=== PATIENT | female | born 1980 | race Two or more races ===

== ENCOUNTER 2018-04-10 15:59 | Outpatient (CLI) | payer OTHER ==
[~2018-04-10] VITALS: Ht 165.1 cm; Wt 113.4 kg
[~2018-04-10 15:59] MED LIST: GILTUSS TR TAB1 EACH PO; NEURONTIN300 MG PO; OSEL75CA PO; TENORMIN50 M1; TESSALON PERLE100 MG PO; TORADOL60 MG IM; VOLTAREM 50 MG PO; VOLTAREM 75 MG PO
== END 2018-04-10 16:10 | disposition home or self-care (01) ==
LOC: OFIC 805 15:59
DX: H90.41 Sensorineural hearing loss, unilateral, right ear, with unrestricted hearing on the contralateral side (principal); R22.1 Localized swelling, mass and lump, neck; H73.891 Other specified disorders of tympanic membrane, right ear

== ENCOUNTER 2018-04-29 06:44 | Outpatient (CLI) | payer OTHER | END 2018-04-29 06:52 | disposition home or self-care (01) | LOC: LAB 06:44 → OFIC 805 05-15 15:00 | DX: I10 Essential (primary) hypertension (principal); Z00.00 Encounter for general adult medical examination without abnormal findings ==

== ENCOUNTER 2018-05-16 15:25 | Outpatient (CLI) | payer OTHER | END 2018-05-16 15:27 | disposition home or self-care (01) | LOC: SONOGRAMA 15:25 | DX: R22.1 Localized swelling, mass and lump, neck (principal) ==

== ENCOUNTER 2019-03-02 06:22 | Outpatient (CLI) | payer OTHER | END 2019-03-02 06:27 | disposition home or self-care (01) | LOC: LAB 06:22 | DX: E03.8 Other specified hypothyroidism (principal); E78.00 Pure hypercholesterolemia, unspecified; N39.0 Urinary tract infection, site not specified; Z11.4 Encounter for screening for human immunodeficiency virus [HIV]; Z12.11 Encounter for screening for malignant neoplasm of colon; E55.9 Vitamin D deficiency, unspecified; Z21 Asymptomatic human immunodeficiency virus [HIV] infection status; R79.89 Other specified abnormal findings of blood chemistry; Z00.00 Encounter for general adult medical examination without abnormal findings; I10 Essential (primary) hypertension ==

== ENCOUNTER 2019-03-02 13:45 | Outpatient (CLI) | payer OTHER | END 2019-03-02 13:55 | disposition home or self-care (01) | LOC: MAMO-SONO 13:45 | DX: Z12.31 Encounter for screening mammogram for malignant neoplasm of breast (principal); Z87.898 Personal history of other specified conditions; N63.10 Unspecified lump in the right breast, unspecified quadrant; N63.20 Unspecified lump in the left breast, unspecified quadrant; N64.59 Other signs and symptoms in breast; N64.89 Other specified disorders of breast ==

== ENCOUNTER 2019-03-16 13:27 | Outpatient (CLI) | payer OTHER | END 2019-03-17 07:43 | disposition home or self-care (01) | LOC: SONOGRAMA 13:27 | DX: N60.11 Diffuse cystic mastopathy of right breast (principal); N60.12 Diffuse cystic mastopathy of left breast ==

== ENCOUNTER → 2019-04-17 14:48 | Outpatient (CLI) | payer OTHER | END | disposition home or self-care (01) | LOC: LAB 14:48 | DX: J11.1 Influenza due to unidentified influenza virus with other respiratory manifestations (principal); J06.9 Acute upper respiratory infection, unspecified ==

== ENCOUNTER → 2019-12-03 06:14 | Outpatient (CLI) | payer OTHER | END | disposition home or self-care (01) | LOC: LAB 06:14 | PROVIDERS: ATTEND Internal Medicine Cardiovascular Disease | DX: E11.9 Type 2 diabetes mellitus without complications (principal); I10 Essential (primary) hypertension; E03.8 Other specified hypothyroidism; E78.2 Mixed hyperlipidemia; E55.9 Vitamin D deficiency, unspecified ==

== ENCOUNTER 2020-11-17 07:18 | Outpatient (CLI) | payer OTHER | END 2020-11-17 15:00 | disposition home or self-care (01) | LOC: LAB 07:18 | PROVIDERS: ATTEND Emergency Medicine Pediatric Emergency Medicine | DX: Z03.818 Encounter for observation for suspected exposure to other biological agents ruled out (principal) ==

== ENCOUNTER 2021-01-26 15:03 | Outpatient (CLI) | payer OTHER | END 2021-01-26 15:06 | disposition home or self-care (01) | LOC: PPH VACUNA 15:03 | PROVIDERS: ATTEND Emergency Medicine Pediatric Emergency Medicine | DX: Z23 Encounter for immunization (principal) ==

== ENCOUNTER → 2021-02-17 | Outpatient (CLI) | payer OTHER | END | disposition home or self-care (01) | LOC: PPH VACUNA 08:00 | PROVIDERS: ATTEND Emergency Medicine Pediatric Emergency Medicine | DX: Z23 Encounter for immunization (principal) ==

== ENCOUNTER → 2021-06-19 | Emergency (ER) | payer OTHER ==
[~2021-06-19] VITALS: Ht 162.6 cm; Wt 113.4 kg
[~2021-06-19] MED LIST changes: +VISTARIL50 MG PO
== END | disposition home or self-care (01) ==
LOC: ER 00:45
DX: F41.8 Other specified anxiety disorders (principal); R11.0 Nausea; Z88.0 Allergy status to penicillin

== ENCOUNTER 2021-07-26 07:21 | Outpatient (CLI) | payer OTHER | END 2021-07-26 14:34 | disposition home or self-care (01) | LOC: LAB 07:21 | DX: Z01.818 Encounter for other preprocedural examination (principal); Z00.00 Encounter for general adult medical examination without abnormal findings ==

== ENCOUNTER 2021-07-27 07:17 | Outpatient (CLI) | payer OTHER | END 2021-07-27 14:37 | disposition home or self-care (01) | LOC: LAB 07:17 | DX: A53.9 Syphilis, unspecified (principal) ==

== ENCOUNTER 2021-08-08 07:29 | Outpatient (CLI) | payer OTHER | END 2021-08-09 15:17 | disposition home or self-care (01) | LOC: LAB 07:29 | PROVIDERS: ATTEND General Practice | DX: K72.00 Acute and subacute hepatic failure without coma (principal); B01.9 Varicella without complication ==

== ENCOUNTER 2021-09-05 15:23 | Outpatient (CLI) | payer OTHER | END 2021-09-05 15:36 | disposition home or self-care (01) | LOC: LAB 15:23 | PROVIDERS: ATTEND Anesthesiology | DX: Z20.822 Contact with and (suspected) exposure to COVID-19 (principal) ==

== ENCOUNTER → 2021-12-26 | Outpatient (CLI) | payer OTHER | END | disposition home or self-care (01) | LOC: PPH VACUNA 08:00 | PROVIDERS: ATTEND Emergency Medicine Pediatric Emergency Medicine | DX: Z23 Encounter for immunization (principal) ==

== ENCOUNTER 2022-03-24 04:15 | Emergency (ER) | payer OTHER ==
[~2022-03-24] VITALS: Ht 162.6 cm; Wt 108.9 kg
[2022-03-24] MEDS ORDERED: MEDROLPACK PO (06:17)
[2022-03-24] MEDS ORDERED: CELEBREX200MG PO (06:17)
[2022-03-24] MEDS ORDERED: METAXALONE800 MG PO (06:17)
== END 2022-03-24 06:25 | disposition home or self-care (01) ==
LOC: ER 04:15
DX: S29.012A Strain of muscle and tendon of back wall of thorax, initial encounter (principal); Z88.0 Allergy status to penicillin; I10 Essential (primary) hypertension

== ENCOUNTER 2022-07-15 02:05 | Emergency (ER) | payer OTHER ==
[~2022-07-15] VITALS: Ht 162.6 cm; Wt 111.1 kg
[~2022-07-15 02:05] MED LIST changes: +CELEBREX200MG PO; +MEDROLPACK PO; +METAXALONE800 MG PO
== END 2022-07-15 04:49 | disposition home or self-care (01) ==
LOC: ER 02:05
DX: B34.9 Viral infection, unspecified (principal); Z20.822 Contact with and (suspected) exposure to COVID-19; Z88.0 Allergy status to penicillin; I10 Essential (primary) hypertension

== ENCOUNTER 2022-12-10 06:12 | Outpatient (CLI) | payer OTHER | END 2022-12-10 06:16 | disposition home or self-care (01) | LOC: LAB 06:12 | PROVIDERS: ATTEND Internal Medicine | DX: D64.9 Anemia, unspecified (principal); R10.9 Unspecified abdominal pain; E03.9 Hypothyroidism, unspecified; E78.5 Hyperlipidemia, unspecified; R80.9 Proteinuria, unspecified; E11.9 Type 2 diabetes mellitus without complications; I50.22 Chronic systolic (congestive) heart failure; Z88.0 Allergy status to penicillin; Z91.018 Allergy to other foods ==

== ENCOUNTER 2022-12-28 10:20 | Outpatient (CLI) | payer OTHER | END 2022-12-28 10:30 | disposition home or self-care (01) | LOC: PPH VACUNA 10:20 | PROVIDERS: ATTEND Emergency Medicine Pediatric Emergency Medicine | DX: Z23 Encounter for immunization (principal) ==

== ENCOUNTER → 2023-01-31 07:23 | Outpatient (CLI) | payer OTHER ==
[2023-01-31 08:12] LABS: HEMATOCRIT 39.6 % (36.0-45.00); HEMOGLOBIN 13.6 g/dL (12.0-15.00); MEAN CORPUSCULAR HEMOGLOBIN 30.2 pg (27.00-32.0); MEAN CORPUSCULAR HGB CONC 34.3 g/dl (32.0-36.0); PLATELET COUNT 210 K/uL (150-450); RED CELL DISTRIBUTION WIDTH 13.5 % (11.5-14.5)
[2023-01-31 09:13] LABS: ALBUMIN 3.4 gm/dL (3.4-5.0); BILIRUBIN TOTAL 0.33 mg/dL (0.3-1.2); CALCIUM 8.5 mg/dL (8.5-10.1); CHOL HDL RATIO 4.8 (0-5.0); CREATININE SERUM 0.66 mg/dL (0.55-1.02); GFR 99.19; GLOBULINA 3.5 G/DL (2.4-3.5); POTASSIUM 4.03 mEq/L (3.5-5.1); T4 FREE 0.84 NG/ML (0.76-1.46); TOTAL PROTEIN 6.9 gm/dL (6.4-8.2); TSH 1.22 uIU/mL (0.358-3.74)
[2023-01-31 11:15] LABS: VITAMIN D3 25 HYDROXY 22.59 ng/ml (30-120)
== END | disposition home or self-care (01) ==
LOC: LAB 07:23
DX: E78.5 Hyperlipidemia, unspecified (principal); E55.9 Vitamin D deficiency, unspecified; E53.8 Deficiency of other specified B group vitamins; R94.6 Abnormal results of thyroid function studies; Z88.0 Allergy status to penicillin; Z91.018 Allergy to other foods

== ENCOUNTER → 2023-05-06 06:14 | Outpatient (CLI) | payer OTHER ==
[2023-05-06 08:42] LABS: ALBUMIN 3.4 gm/dL (3.4-5.0); BILIRUBIN TOTAL 0.42 mg/dL (0.3-1.2); CALCIUM 8.9 mg/dL (8.5-10.1); CHOL HDL RATIO 4.2 (0-5.0); CREATININE SERUM 0.83 mg/dL (0.55-1.02); GFR 75.76; GLOBULINA 3.3 G/DL (2.4-3.5); POTASSIUM 4.4 mEq/L (3.5-5.1); TOTAL PROTEIN 6.7 gm/dL (6.4-8.2)
== END | disposition home or self-care (01) ==
LOC: LAB 06:14
DX: E11.65 Type 2 diabetes mellitus with hyperglycemia (principal); E78.2 Mixed hyperlipidemia; E55.9 Vitamin D deficiency, unspecified